=== PATIENT | male | born 1965 | race Caucasian/White ===

== ENCOUNTER 2018-01-20 08:34 | Inpatient (IN) ==
--- NOTE | 2018-01-19 22:05 | Discharge Summary ---
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 Bernal is a 52 year old male - Time Spent with Patient Total time spent providing and/or coordinating discharge services: - Discharge Medications Home Medications: Aspirin Enteric Coated [Aspirin EC] 325 mg PO DAILY 21 Days #21 tablet. [Rx] OxyCODONE Immed Rel [Roxicodone 5 MG] 5 mg PO Q6HR PRN 7 Days #28 tablet [Rx] Aspirin/Caffeine [Back-Body Pain Reliever Caplet] 1 tab PO HS 01/20/18 [History] Ergocalciferol (VITAMIN D2) [Vitamin D2] 50,000 unit PO QMONTH 01/20/18 [History ] Losartan Potassium [Cozaar] 50 mg PO DAILY 01/20/18 [History] Allergies/Adverse Reactions: 3 Allergy/AdvReac Type Severity Reaction Status Date / Time No Known Allergies Allergy Verified 01/20/18 09:06 Primary care physician: PCP NONE - Patient Status Disposition: Home Health Service Condition: Good - Discharge Instructions Follow Up With: NONE,PCP [Primary Care Provider] - Joseluis Harmon MD [Family Provider] - <Gorge Araujo - Last Filed: 01/21/18 06:50> Orders not resulted at time of discharge: Pending orders 01/20/18 01:00 XR knee RT limited 1-2V [XR] Routine Hemoglobin and Hematocrit [HEME] Routine Date of Encounter: 01/21/18 Time of Encounter: 06:49 - Discharge Diagnosis (1) Obesity (BMI 30.0-34.9) Priority: Secondary Status: Chronic (2) 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 Qualifiers: Encounter type: subsequent encounter Qualified Code(s): T84.038D - Mechanical loosening of other internal prosthetic joint, subsequent encounter; Z96.659 - Presence of unspecified artificial knee joint; Z96.659 - Presence of unspecified artificial knee joint (3) HTN (hypertension) Priority: Secondary Status: Chronic Qualifiers: Hypertension type: unspecified Qualified Code(s): I10 - Essential (primary ) hypertension (4) Tobacco dependence due to chewing tobacco Priority: Secondary Status: Chronic (5) Status post revision of total replacement of right knee Priority: Primary Status: Acute - Hospital Course Hospital course: Mr. Bernal is a 52 year old male Status post revision right total knee The patient had an uneventful postoperative course. They received antibiotics and physical therapy and were discharged in stable condition. There will follow -up in the office in 2 weeks. - Time Spent with Patient Total time spent providing and/or coordinating discharge services: Primary care physician: PCP NONE - Patient Status Functional capacity at discharge: uses cane/walker Overall status at discharge: patient is progressing back to baseline
--- NOTE | 2018-01-20 08:35 | Physician Discharge Referral ---
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 For more information, call the [employer] Tobacco Quit Line at 4-202-FPYW-NOW. - Dressing/Wound Care Site: right knee Type of Dressing/Treatments w/Frequency: Total Knee replacement Precautions x 6 weeks Apply cold therapy wrap 3-6x/day for 20 minutes at a time. Encourage ambulation throughout the day and incentive spirometer 10x/hour. Elevate affected extremity above heart as tolerated. Brace: Wear knee immobilizer at night x 2 weeks. - Diet/Nutrition Diet/Nutrition Orders: Regular - Activity Activity Orders: Up ad noemi, Ambulate, Chair, Walker - Services Needed Following services are medically necessary services: Nursing, Home Health Aide, Physical Therapy, Occupational Therapy - Transfer Medications Prescriptions: OxyCODONE Immed Rel [Roxicodone 5 MG] 5 mg PO Q6HR PRN 7 Days #28 tablet PRN Reason: Severe Pain Aspirin Enteric Coated [Aspirin EC] 325 mg PO DAILY 21 Days #21 tablet. [place] Medications: Aspirin Enteric Coated [Aspirin EC] 325 mg PO DAILY 21 Days #21 tablet. [Rx] OxyCODONE Immed Rel [Roxicodone 5 MG] 5 mg PO Q6HR PRN 7 Days #28 tablet [Rx] Allergies/Adverse Reactions: 3 Allergy/AdvReac Type Severity Reaction Status Date / Time No Known Allergies Allergy Unverified 01/09/18 09:11 Certification: Further, I certify that my clinical findings support that this patient is homebound (i.e. absences from home require considerable and taxing effort and are for medical reasons or christianity services or infrequently or short duration when for other reasons) because: Homebound Reason: Post-surgery restriction and or conditions limit ability to leave home Attestation: My signature below is to certify that this patient is under my care and that I, or nurse practitioner, or a physician oncology physician assistant working with me, has a face-to- face encounter with this patient.
[2018-01-20] MEDS ORDERED: CeFAZolin Syr 2,000MG/20 ML 2,000 MG/20 ML SYRINGE IVPB ONE (08:55)
[2018-01-20] MEDS: Ringers Solution, Lactated 1,000 ML IVC SCH ×2 (09:17→11:54)
--- NOTE | 2018-01-20 09:32 | Anesthesia Evaluation PreOp ---
Date of Encounter: 01/20/18 Time of Encounter: 09:31 - Past History Planned Operation: Right total knee arthroplasty Cardiac History: HTN, Hyperlipidemia Pulmonary History: Denies Any Significant HX [facility] History: Denies Any Significant HX Other Medical History: Denies Any Significant HX Anesthesia History: No Prior Anesthetic Complications, Past Anesthesia (right total knee, left total knee) Alcohol Use: none Drug use: none Medications and Allergies Aspirin Enteric Coated [Aspirin EC] 325 mg PO DAILY 21 Days #21 tablet. [Rx] OxyCODONE Immed Rel [Roxicodone 5 MG] 5 mg PO Q6HR PRN 7 Days #28 tablet [Rx] Aspirin/Caffeine [Back & Body Pain Reliever Cplt] 1 tab PO HS 01/20/18 [History] Ergocalciferol (VITAMIN D2) [Vitamin D2] 50,000 unit PO QMONTH 01/20/18 [History ] Losartan Potassium [Cozaar] 50 mg PO DAILY 01/20/18 [History] 3 Allergy/AdvReac Type Severity Reaction Status Date / Time No Known Allergies Allergy Verified 01/20/18 09:06 - Meds/Allergy Pre-op Review Medications Reviewed: Yes Allergies Reviewed: Yes Beta Blockers on Current Med List: No Anesthesia Results - Labs Laboratory Tests 01/09/18 01/09/18 01/09/18 09:11 09:11 09:11 WBC 7.2 Hgb 12.3 L Hct 37.9 Plt Count 245 PT 11.1 INR 1.0 APTT 29.5 Sodium 137 Potassium 4.2 Chloride 106 Carbon Dioxide 26 BUN 22 H Creatinine 1.09 Est GFR ( Amer) > 60 Est GFR (Non-Af Amer) > 60 BUN/Creatinine Ratio 20 - Imaging EKG: report reviewed, image reviewed (SR) Anesthesia Exam Last Vital Signs Temp 98.3 F 01/20/18 09:16 Pulse 67 01/20/18 09:16 Resp 18 01/20/18 09:16 BP 158/96 01/20/18 09:16 Pulse Ox 99 01/20/18 09:16 Weight: 92 kg NPO (# of Hours): > 8 hrs - HEENT Pupil (Motor): Pupils equal, EOMI Mallampati: III Teeth: Poor dentition Oral Opening: Greater than 3 - [facility] LOC: Oriented - Cardiac Rhythm: Regular Murmur: None - Pulmonary Breath Sounds: bilateral Clear Respiratory Effort: Symmetrical Anesthesia Assess/Plan ASA Score: 2 Modified Elizabeth Scale for Level of Consciousness: Cooperative, oriented, and tranquil Anesthetic Plan: Regional (spinal), MAC Monitoring Plan: Standard Monitors Recovery Plan: PACU
[2018-01-20] MEDS ORDERED: *HR* Midazolam HCl 2 MG/2 ML VIAL ONE (09:56)
[2018-01-20] MEDS ORDERED: *HR* FentaNYL (PF) 100 MCG/2 ML VIAL ONE (09:56)
[2018-01-20] MEDS ORDERED: Propofol 500 MG/50 ML INFUS..BTL ONE ×2 (09:58→12:06)
--- NOTE | 2018-01-20 10:14 | History & Physical Report ---
Date of Encounter: 01/20/18 Time of Encounter: 10:14 24 Hour HP Update - Instructions Instructions: If the History and Physical is less than 30 days old and was completed prior to A.M. admission and or procedure and has NOT been updated on calendar day of procedure please complete this update prior to performing procedure. - Update Patient reports changes in Medical Condition: No Changes in examination, assessment, or condition: No Changes in Medication: No Preop tests/diagnostics Reviewed: Yes Surgery Remains Indicated: Yes Consent for Planned Operative Procedure(s) Verified: Yes - Pre-Operative Checklist Preoperative Checklist Indicated: No Prophylactic Antibiotic Ordered: Yes Is VTE Prophylaxis Indicated?: Yes
[2018-01-20] MEDS ORDERED: *HR* Morphine Sulfate/PF 10 MG/10 ML AMPUL ONE (10:23)
[2018-01-20] MEDS ORDERED: Ethanol\\Acetic Acid\\Na Ace\\Ben 1,000 ML IRRIG.SOLN IR ONE (10:48)
--- NOTE | 2018-01-20 10:53 | Anesthesia Procedures ---
Date of Encounter: 01/20/18 Time of Encounter: 10:48 Procedures: Anesthesia - Epidural/Spinal Patient ID/Chart reviewed: Yes Patient examined: Yes Consent Obtained: Yes Supplemental Oxygen: Nasal Cannula Supplemental Oxygen Rate (L/min): 2 Sedation: Versed (mg): 2 Sedation: Fentanyl (mcg): 100 Site Prep: Aseptic Technique, Sterile prep and drape, 0.5% Chlorhexidine/Alcohol Patient position: upright Local Anesthetic: Lidocaine 1% Amount of Local Anesthetic used: 2 Blood: No CSF: Yes Paresthesia: No Procedure: vss though out, 2.5ml of 0.5% bup isobaric, 200mcg duramorph. all per KIYA Garcia
[2018-01-20] MEDS ORDERED: Ketorolac 30 MG/ML VIAL ONE (11:43)
[2018-01-20] MEDS ORDERED: Ondansetron 4 MG/2 ML VIAL ONE (11:43)
[2018-01-20] MEDS ORDERED: Dexamethasone 4 MG/ML VIAL ONE ×2 (11:43→12:13)
[2018-01-20] MEDS ORDERED: *HR* Labetalol 20 MG/4 ML SYRINGE IVP PRN (11:47)
[2018-01-20] MEDS ORDERED: *HR* Promethazine 25 MG/ML VIAL IVP PRN (11:47)
--- NOTE | 2018-01-20 12:15 | Orthopedic Operative Note ---
Date of procedure: 01/20/18 Pre-op diagnosis: Aseptic loosening right tibial component knee Post-op diagnosis: same Procedure: Procedure: Right revision tibial component Estimated blood loss: 200 cc Hardware: Metal and polyethylene replacement Arthrex tibia size 4, 14 x 50 stem, 20 PS Lesley, 5 mm medial augment Exam Under anesthesia: Full flexion full extension well-healed incision no swelling or erythema significant varus valgus instability Procedural Notes: Loosening of tibial component , cemented reaction disease Operative procedure: The patient was brought to the operating room and placed on the operating room table. After general anesthesia was administered the operative knee was examined. Findings were noted in the exam under anesthesia. The operative extremity was prepped and draped in sterile surgical fashion. The patient received IV antibiotics prior to skin incision. A standard midline incision was made centered over the patella. The incision was made through the skin and subcutaneous tissue through the old incision. A medial parapatellar tendon approach was performed. Care was taken to preserve tissue along the medial aspect of the patella. And to protect the patella tendon. The deep MCL was released off the medial tibia. The infra patella fat pad was excised. Cultures were obtained as well as Gram stain. 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 An extensive synovectomy was performed. The knee was brought into flexion the tibial poly-was removed. The femur was well fixed. Attention was then turned to the tibial component. The tibial component was loose and removed with an osteotome without any bone loss. Tibia was recut just below the level of the cement mantle. The tibia was prepared first sized to a 4 reamed to a 14 x 50 stem. The finishing punch was seated. Trial had good fit and fixation. With a 5 mm medial augment. Trial reduction revealed full extension and full flexion no varus valgus instability with an 20 PS Lesley. Trial components removed knee sat for 1 minutes with a antibacterial solution. It was irrigated out with pulse irrigation. Components were assembled on the back table. The tibia cemented. The 20 PS Lesley was seated and secure. The had full flexion and full extension and excellent patella tracking no varus valgus instability. After the cement hardened the knee was irrigated out again. The knee was taken through a range of motion had excellent patella tracking. The knee was closed by the PA. The extensor mechanism was closed with a running #2 Fiberwire suture and a running #2 PDS suture. The deep tissue was irrigated and closed deep with #1 PDS suture superficially with 0 PDS suture. The skin was closed with Dermabond and skin william. The patient was placed in a sterile dressing and postoperative brace. They were extubated and transferred to recovery room in stable condition. Anesthesia: spinal Surgeon: Gorge Araujo Was there an first assistant present: Yes Research Associate: Geneva Mohamud Estimated blood loss (cc): 200 Condition: stable Disposition: PACU
[2018-01-20] MEDS ORDERED: Naloxone 0.4 MG/ML INJ IVP PRN (13:33)
[2018-01-20] MEDS ORDERED: Ondansetron 4 MG/2 ML VIAL IVP PRN (13:33)
[2018-01-20] MEDS ORDERED: MOM Conc 10 ML UD.LIQ PO PRN (13:33)
[2018-01-20] MEDS ORDERED: *HR* OxyCODONE Immed Rel 5 MG TABLET PO PRN (13:33)
[2018-01-20] MEDS ORDERED: Ringers Solution, Lactated 1,000 ML IVC SCH (13:33)
[2018-01-20] MEDS ORDERED: Sennosides 8.6 MG TABLET PO PRN (13:33)
[2018-01-20] MEDS ORDERED: Temazepam 15 MG CAPSULE PO PRN (13:33)
[2018-01-20 13:52] LABS: Hematocrit 36.3 % (37.5-50.1); Hemoglobin 11.5 g/dL (12.9-16.9)
--- NOTE | 2018-01-20 13:55 | Anesthesia Evaluation Post Op ---
Date of Encounter: 01/20/18 Time of Encounter: 13:55 - Vital Signs Vital Signs: Last Vital Signs Temp 96.5 F L 01/20/18 13:38 Pulse 60 01/20/18 13:38 Resp 16 01/20/18 13:38 BP 118/74 01/20/18 13:38 Pulse Ox 97 01/20/18 13:38 - Lungs Lungs: Clear Ascult./Percussion - Airway Airway: Non-obstructed - Cardiovascular Regular Rate - Mental Status Mental Status: Alert & Oriented, Answers Appropriately - Pain Pain Scale: 3 - Nausea Vomiting Nausea Vomiting: Not Present - Hydration Hydration: NPO - Discharge PostOp Status: Transfer Patient to floor
[2018-01-20] MEDS: CeFAZolin Premix DUPLEX 2,000 MG/50 ML BAG IVPB SCH ×2 (16:21→23:30)
[2018-01-20] MEDS: *HR* Enoxaparin 30 MG/0.3 ML SYRINGE SQ SCH (16:21)
[2018-01-20] MEDS ORDERED: *HR* Enoxaparin 30 MG/0.3 ML SYRINGE SQ SCH (18:00)
[2018-01-20] MEDS ORDERED: ASPIRIN PO SCH (21:00)
[2018-01-20] MEDS ORDERED: CAFFEINE PO SCH (21:00)
[2018-01-20] MEDS: *HR* OxyCODONE Immed Rel 5 MG TABLET PO PRN (23:30)
[2018-01-21] MEDS: *HR* Enoxaparin 30 MG/0.3 ML SYRINGE SQ SCH (05:28)
[2018-01-21 05:35] LABS: Hematocrit 34.5 % (37.5-50.1); Hemoglobin 11.5 g/dL (12.9-16.9)
[2018-01-21 05:54] LABS: BUN/Creatinine Ratio 15 (6-26); Blood Urea Nitrogen 17 mg/dL (6-20); Calcium 8.8 mg/dL (8.6-10.3); Carbon Dioxide 25 mEq/L (23-29); Chloride 103 mEq/L (98-107); Glucose 152 mg/dL (70-105); Osmolality,Calculated 281 (280-300); Potassium 4.2 mEq/L (3.5-5.1); Sodium 133 mEq/L (136-145); eGFR For Non-African Americans > 60 (> 60)
--- NOTE | 2018-01-21 06:50 | Orthopedics Progress Note ---
Date of Encounter: 01/21/18 Time of Encounter: 06:50 - Assessment and Plan (1) Obesity (BMI 30.0-34.9) Current Visit: Yes Status: Chronic (2) Loosening of knee joint prosthesis Current Visit: No Status: Chronic Qualifiers: Encounter type: subsequent encounter Qualified Code(s): T84.038D - Mechanical loosening of other internal prosthetic joint, subsequent encounter; Z96.659 - Presence of unspecified artificial knee joint; Z96.659 - Presence of unspecified artificial knee joint (3) HTN (hypertension) Current Visit: No Status: Chronic Qualifiers: Hypertension type: unspecified Qualified Code(s): I10 - Essential (primary ) hypertension (4) Tobacco dependence due to chewing tobacco Current Visit: No Status: Chronic (5) Status post revision of total replacement of right knee Current Visit: Yes Status: Acute Subjective Interval history: Patient was seen this morning doing well without complaints. Afebrile vital signs stable. Operative extremity: Neurovascularly intact Dressing clean dry and intact Calves nontender Assessment and plan: Continue with postoperative care Hematocrit 34 discharged today Objective Vital signs: Vital Signs Temp Pulse Resp BP Pulse Ox 01/21/18 04:18 97.7 F 83 16 130/83 97 01/21/18 00:01 97.6 F 81 17 152/91 97 01/20/18 20:46 97.8 F 85 17 131/78 95 01/20/18 17:45 97.6 F 83 16 130/79 95 01/20/18 16:16 97.1 F L 77 16 132/77 97 01/20/18 15:10 96.7 F L 64 16 149/92 98 01/20/18 14:08 96.5 F L 54 16 119/74 98 01/20/18 13:38 96.5 F L 60 16 118/74 97 01/20/18 13:18 97.5 F L 56 16 132/88 98 01/20/18 13:08 97.7 F 61 16 105/76 99 01/20/18 12:58 97.7 F 83 16 115/78 99 01/20/18 12:48 97.7 F 83 16 91/58 99 01/20/18 11:07 72 15 146/78 98 01/20/18 11:03 72 16 146/80 98 01/20/18 11:00 73 16 135/95 100 03/05/18 10:50 78 18 140/95 100 01/20/18 10:25 79 167/112 100 01/20/18 09:16 98.3 F 67 18 158/96 99 Intake and Output 01/20/18 01/20/18 01/21/18 15:59 23:59 07:59 Intake Total 1000 / 1000 150 / 150 Output Total 200 / 200 475 / 475 750 / 750 Balance 800 / 800 -325 / -325 -750 / -750 Intake: IV Fluids 1000 / 1000 50 / 50 Lactated Ringers 1,000 ML @ 25 1000 / 1000 mls/hr IVC .Q24H [facility] Rx#: [id number] Ancef Premix DUPLEX 2,000 mg In 50 / 50 50 ml @ 100 mls/hr IVPB Q8HR [facility] Rx#:[id number] Oral 100 / 100 Output: Urine 475 / 475 750 / 750 Estimated Blood Loss 200 / 200 Other: Weight 92.079 kg 92.4 kg Patient Weight 01/21/18 23:59 Weight 92.4 kg - Labs CBC & BMP: 01/21/18 05:22 01/21/18 05:22 Labs: Abnormal lab results Hgb 11.5 g/dL (12.9-16.9) L 01/21/18 05:22 Hct 34.5 % (37.5-50.1) L 01/21/18 05:22 Sodium 133 mEq/L (136-145) L 01/21/18 05:22 Glucose 152 mg/dL (70-105) H 01/21/18 05:22 - VTE Documentation of Mechanical Device: Venous foot pump, device Consult Discharge Plan - Plan Referrals: NONE,PCP [Primary Care Provider] - Joseluis Harmon MD [Family Provider] -
[2018-01-21] MEDS: *HR* OxyCODONE Immed Rel 5 MG TABLET PO PRN (09:29)
[2018-01-21 11:25] VITALS: BP 130/79
== END 2018-01-21 13:17 | disposition home health service (06) | DRG 468 ==
LOC: SAMDAY 08:34 → 3NENU 13:30
PROVIDERS: ADMIT Orthopaedic Surgery; ATTEND Orthopaedic Surgery